=== PATIENT | female | born 1980 | race African-American/Black ===

== ENCOUNTER 2022-04-29 15:05 | Emergency (ER) | payer MEDICARE, MEDICAID ==
[~2022-04-29] VITALS: Ht 172.7 cm; Wt 90.8 kg
[2022-04-29 15:31] VITALS: BP 132/73
[2022-04-29] MEDS ORDERED: AZIT250T9 PO (16:26)
== END 2022-04-29 17:27 | disposition home or self-care (01) ==
LOC: ER 15:05
DX: J06.9 Acute upper respiratory infection, unspecified (principal); Z20.822 Contact with and (suspected) exposure to COVID-19
CPT/HCPCS: 36415; 87426; 87804

== ENCOUNTER 2022-07-29 12:54 | Emergency (ER) | payer MEDICARE, MEDICAID ==
[~2022-07-29] VITALS: Ht 185.4 cm; Wt 82.0 kg
[~2022-07-29 12:54] MED LIST: AZIT250T9 PO
[2022-07-29 13:25] VITALS: BP 123/64
[2022-07-29] MEDS ORDERED: CIP03OS RIGHTEYE (13:30)
== END 2022-07-29 13:44 | disposition home or self-care (01) ==
LOC: ER 12:54
DX: H10.31 Unspecified acute conjunctivitis, right eye (principal); Z79.2 Long term (current) use of antibiotics